=== PATIENT | male | born 1955 | race Caucasian/White ===

== ENCOUNTER 2019-10-04 16:31 | Emergency (ER) | payer OTHER ==
[~2019-10-04] VITALS: Ht 185.4 cm; Wt 93.2 kg
[2019-10-04] MEDS ORDERED: meclizine 12.5mg tablet PO ONE ×2 (16:35→17:35)
[2019-10-04] MEDS ORDERED: ondansetron 4mg rapidly disintigrating tab PO ONE (16:35)
--- NOTE | 2019-10-04 16:46 | NUR ---
holding off on giving the zofran odt per since some was given in route by ems, will continue to monitor
[2019-10-04] MEDS ORDERED: MECL-159 PO ×2 (16:59→17:06)
[2019-10-04] MEDS ORDERED: ONDA4TAB6 PO ×2 (16:59→17:06)
--- NOTE | 2019-10-04 17:47 | NUR ---
pt given meclazine and will be discharged shortly
[2019-10-04 18:04] VITALS: BP 157/85
== END 2019-10-04 18:10 | disposition home or self-care (01) ==
LOC: ER 16:32
DX: R42 Dizziness and giddiness (principal); R51 Headache; R11.0 Nausea; Z79.899 Other long term (current) drug therapy
CPT/HCPCS: 99283; J8597